=== PATIENT | female | born 1980 | race Caucasian/White ===

== ENCOUNTER 2022-01-16 01:57 | Emergency (ER) | payer BC ==
[2022-01-16] MEDS ORDERED: MORPHINE 4 MG/ML SYR ONE (02:11)
[2022-01-16] MEDS ORDERED: ONDANSETRON 4 MG/2 ML VIAL ONE (02:12)
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
[2022-01-16] MEDS ORDERED: NA CHLORIDE 0.9% 1,000 ML ONE (04:22)
[2022-01-16 04:42] LABS: SARS-CoV-2 Antigen Rapid Res Negative (Negative)
[2022-01-16] MEDS ORDERED: NA CHLORIDE 0.9% 500 ML ONE (05:47)
[2022-01-16 07:40] VITALS: BP 105/69; O2SAT 98
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
--- NOTE | 2022-01-16 15:15 | RAD REPORT ---
EXAM DESCRIPTION: RAD - Femur Left - 01/16/2022 2:47 am CLINICAL HISTORY: 41 years, Female, PAIN COMPARISON: None. FINDINGS: 2 X-ray views of the left femur were performed. There is a nondisplaced impacted fracture within the basicervical aspect of the left femoral neck There is no focal soft tissue swelling. There is still of the femur demonstrate to be unremarkable Limited evaluation of the knee and hip joints demonstrate no gross abnormalities. The bony pelvis is grossly normal in appearance. IMPRESSION: Nondisplaced impacted fracture within the basicervical aspect of the left femoral neck. Electronically signed by: Ramon Reyes MD 01/16/2022 3:16 AM CERTIFIED ART THERAPIST Due to temporary technical issues with the PACS/Fluency reporting system, reports are being signed by the in house radiologists without review as a courtesy to insure prompt reporting. The interpreting radiologist is fully responsible for the content of the report.
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
== END 2022-01-16 07:27 | disposition short-term general hospital (02) ==
LOC: ER 01:57
DX: S72.002A Fracture of unspecified part of neck of left femur, initial encounter for closed fracture (principal); Z20.822 Contact with and (suspected) exposure to COVID-19
CPT/HCPCS: 96361; 36415; 72192; 72170; 73552; 96375; 96374; 99285; 87811; J7040; J7030; J2405